=== PATIENT | male | born 1995 | race Caucasian/White ===

== ENCOUNTER 2020-01-17 18:45 | Emergency (ER) | payer BC, OTHER ==
[~2020-01-17] VITALS: Ht 190.5 cm; Wt 104.5 kg
[~2020-01-17 18:45] MED LIST: IBUP-1985 PO
[2020-01-17] MEDS ORDERED: normal saline 1000ML IV soln IV ONE (21:40)
[2020-01-17] MEDS ORDERED: acetaminophen 325mg tablet PO STA (21:40)
[2020-01-17] MEDS ORDERED: oseltamivir phos 75mg capsule PO ONE (21:50)
[2020-01-17 21:59] LABS: BASOPHILS % (AUTO) 0.4 % (0-1); EOSINOPHILS % (AUTO) 0.4 % (0-6); HEMOGLOBIN 16.2 g/dl (14.0-17.9); LYMPHOCYTES # (AUTO) 0.8 X10'3 (1.1-4.8); MEAN CORPUSCULAR HEMOGLOBIN 31.3 PG (27.0-31.0); MEAN CORPUSCULAR HGB CONC 35.1 g/dL (33.0-36.5); MEAN CORPUSCULAR VOLUME 89.3 FL (78-98); MEAN PLATELET VOLUME 7.7 FL (7.4-10.4); MONOCYTES # (AUTO) 1.7 X10'3 (0-0.9); NEUTROPHILS % (AUTO) 75.2 % (42-75); PLATELET COUNT 258 X10'3 (140-440); RED BLOOD COUNT 5.16 X10'6 (4.70-6.10); RED CELL DISTRIBUTION WIDTH 13.3 % (11.5-14.5); WHITE BLOOD COUNT 10.6 X10'3 (4.5-11.0)
[2020-01-17 22:13] LABS: ALANINE AMINOTRANSFERASE 61 U/L (12-78); ALBUMIN/GLOBULIN RATIO 1.2 (1.1-1.5); ALKALINE PHOSPHATASE 110 IU/L (46-116); ANION GAP 9 (8-16); ASPARTATE AMINO TRANSFERASE 27 U/L (10-37); BILIRUBIN,TOTAL 0.4 MG/DL (0.1-1.0); BLOOD UREA NITROGEN 9 MG/DL (7-18); BUN/CREATININE RATIO 7.3 (5.4-32.0); CALCIUM 9.2 MG/DL (8.5-10.1); CHLORIDE 101 MMOL/L (99-107); CREATININE 1.24 MG/DL (0.60-1.10); GLUCOSE 179 MG/DL (70-104); POTASSIUM 3.7 MMOL/L (3.5-5.1); SODIUM 139 MMOL/L (135-145); TOTAL CARBON DIOXIDE 29.4 MMOL/L (24-32); TOTAL PROTEIN 7.3 G/DL (6.4-8.2); eGFR 70 ML/MIN
[2020-01-17] MEDS ORDERED: AZIT250T2 PO (22:47)
[2020-01-17] MEDS ORDERED: ALBU6.7H9 INH (22:47)
[2020-01-17] MEDS ORDERED: TAM75C PO (22:47)
[2020-01-17 22:50] LABS: TOTAL CELLS COUNTED 100
[2020-01-17 22:51] LABS: GIANT PLATELET FEW
[2020-01-17 23:29] VITALS: BP 151/67
[2020-01-18 18:43] LABS: PLATELET ESTIMATE NORMAL
== END 2020-01-17 23:30 | disposition home or self-care (01) ==
LOC: ER 18:46
DX: J11.1 Influenza due to unidentified influenza virus with other respiratory manifestations (principal); Z88.1 Allergy status to other antibiotic agents; Z79.2 Long term (current) use of antibiotics; Z79.899 Other long term (current) drug therapy
CPT/HCPCS: 36415; 71046; 80053; 83605; 85025; 87040; 87502; 87503; 99284; J7030